=== PATIENT | male | born 1995 | race Two or more races ===

== ENCOUNTER 2019-01-18 08:47 | Emergency (ER) | payer OTHER ==
[~2019-01-18] VITALS: Ht 180.3 cm; Wt 94.3 kg
[2019-01-18 09:22] VITALS: BP 180/64
--- NOTE | 2019-01-18 10:00 | PHYS DOC ---
Past History Past Medical History: No Pertinent History Past Surgical History: No Surgical History Alcohol Use: Occasionally Drug Use: None Adult General Chief Complaint Chief Complaint: LACERATION/AVULSION [facility] Patient is a 23-year-old male who presents with injury just lateral to his right eye that he sustained while at work. Patient was working on a car that was up on the left and he was working on one of his bearings. Bearing came loose and struck him just lateral to the right eye. He had no loss of consciousness. He admits the pain he rates as mild. Injury occurred less than an hour ago.[] Review of Systems Review of Systems Constitutional: Denies fever or chills [] Eyes: Denies change in visual acuity, redness, or eye pain [] Respiratory: Denies cough or shortness of breath [] Cardiovascular: No additional information not addressed in HPI [] Integument: Positive laceration[] Neurologic: Denies headache, focal weakness or sensory changes [] Allergies Allergies Allergies Coded Allergies Type Severity Reaction Last Updated Verified No Known Drug Allergies 01/18/19 No Physical Exam Physical Exam Constitutional: Well developed, well nourished, no acute distress, non-toxic appearance. [] HENT: Normocephalic, with 1.5; laceration noted to the face just lateral to right eye. Laceration is jagged in shape with fairly sharp margins. Laceration extends into subcutaneous tissue. No foreign body detected.. [] Eyes: PERRLA, EOMI, conjunctiva normal, no discharge. [] Cardiovascular:Heart rate regular rhythm, no murmur [] Lungs & Thorax: Bilateral breath sounds clear to auscultation [] Skin: Warm, dry, laceration as noted above. [] Neurologic: Alert and oriented X 3, no focal deficits noted. [] Current Patient Data Vital Signs Vital Signs Date Time Temp Pulse Resp B/P (MAP) Pulse Ox O2 Delivery O2 Flow Rate FiO2 01/18/19 09:22 98.1 58 18 97 Room Air EKG EKG [] Radiology/Procedures Radiology/Procedures [] Course & Med Decision Making Course & Med Decision Making Pertinent Labs and Imaging studies reviewed. (See chart for details) Laceration Repair by me: Anesthesia: 1% lidocaine locally Location: Face, just lateral to right eye Tendon/Joint/Nerves: No injury Foreign body: None detected after copious irrigation and exploration Technique: A total of 6 Simple Interrupted Sutures were placed utilizing 5-0 Ethilon suture material. Complexity: No subcutaneous sutures/mucosal repair/edge excision Post Closure Length: 1.5 cm Patient's bleeding was easily controlled in the department and there is no indication of anemia. No evidence of compartment syndrome, neurologic injury, vascular injury, open joint, tendon laceration, or foreign body. Patient is appropriate for outpatient follow up. 48 hour wound check. Scar minimization instructions given. Dragon Disclaimer Dragon Disclaimer This electronic medical record was generated, in whole or in part, using a voice recognition dictation system. Departure Departure: Impression: Primary Impression: Facial laceration Disposition: HOME, SELF-CARE Condition: STABLE Referrals: PCP,NO (PCP) Patient Instructions: Facial Laceration Additional Instructions: Return for suture removal in 5 days. Problem Qualifiers Primary Impression: Facial laceration Encounter type: initial encounter Qualified Codes: S01.81XA - Laceration without foreign body of other part of head, initial encounter SANTOS MATOS Jr., DO Jan 18, 2019 10:00
[2019-01-18] MEDS ORDERED: DIPHTH,PERTUSS(ACELL),TET TOX 0.5 ML DISP.SYRIN. VAX IM ONE (10:30)
== END 2019-01-18 10:07 | disposition home or self-care (01) ==
LOC: ER 08:47
DX: S01.81XA Laceration without foreign body of other part of head, initial encounter (principal); W20.8XXA Other cause of strike by thrown, projected or falling object, initial encounter; Y93.89 Activity, other specified; Y92.89 Other specified places as the place of occurrence of the external cause; Y99.8 Other external cause status
CPT/HCPCS: 12011; 90471; 90715; 99283

== ENCOUNTER 2019-01-24 16:00 | Emergency (ER) | payer OTHER ==
[~2019-01-24] VITALS: Ht 180.3 cm; Wt 94.3 kg
[2019-01-24 16:16] VITALS: BP 124/71
--- NOTE | 2019-01-24 16:20 | PHYS DOC ---
Past History Past Medical History: No Pertinent History Past Surgical History: No Surgical History Smoking: Non-smoker Alcohol Use: Occasionally Drug Use: None Adult General Chief Complaint Chief Complaint: SUTURE/STAPLE REMOVAL [facility] HPI Patient is a 23-year-old male presents for suture removal. Sutures were placed 6 days ago lateral to his right eye. There has been no purulent drainage. No pain. No change in vision. No fever.[] Review of Systems Review of Systems Constitutional: Denies fever or chills [] Eyes: Denies change in visual acuity, redness, or eye pain [] HENT: Denies nasal congestion or sore throat [] Respiratory: Denies cough or shortness of breath [] Cardiovascular: No additional information not addressed in HPI [] GI: Denies abdominal pain, nausea, vomiting, bloody stools or diarrhea [] : Denies dysuria or hematuria [] Musculoskeletal: Denies back pain or joint pain [] Integument: Denies rash or skin lesions, see history of present illness [] Neurologic: Denies headache, focal weakness or sensory changes [] Endocrine: Denies polyuria or polydipsia [] All other systems were reviewed and found to be within normal limits, except as documented in this note. Allergies Allergies Allergies Coded Allergies Type Severity Reaction Last Updated Verified No Known Drug Allergies 01/18/19 No Physical Exam Physical Exam Constitutional: Well developed, well nourished, no acute distress, non-toxic appearance. [] HENT: Normocephalic, sutured wound lateral to the right eye. No purulent drainage, no erythema, no wound dehiscence, bilateral external ears normal, oropharynx moist, no oral exudates, nose normal. [] Eyes: PERRLA, EOMI, conjunctiva normal, no discharge. [] Neck: Normal range of motion, no tenderness, supple, no stridor. [] Cardiovascular:Heart rate regular rhythm, no murmur [] Lungs & Thorax: Bilateral breath sounds clear to auscultation [] Abdomen: Not examined. [] Skin: Warm, dry, no erythema, no rash. [] Back: No tenderness, no CVA tenderness. [] Extremities: No tenderness, no cyanosis, no clubbing, ROM intact, no edema. [] Neurologic: Alert and oriented X 3, normal motor function, normal sensory function, no focal deficits noted. [] Psychologic: Affect normal, judgement normal, mood normal. [] EKG EKG [] Radiology/Procedures Radiology/Procedures [] Course & Med Decision Making Course & Med Decision Making Pertinent Labs and Imaging studies reviewed. (See chart for details) ED course: Patient arrived, was placed in bed, and tolerated exam well. Sutures were removed without any complications. He was discharged in improved condition with all questions answered. Medical decision making: Encounter for suture removal without any complications. No evidence of an infection.[] Dragon Disclaimer Dragon Disclaimer This electronic medical record was generated, in whole or in part, using a voice recognition dictation system. Departure Departure: Impression: Primary Impression: Visit for suture removal Disposition: HOME, SELF-CARE Condition: IMPROVED Referrals: PCPNAKIA (PCP) Patient Instructions: Suture Removal Additional Instructions: Use sunblock for the next year. Use vitamin E oil to help with wound healing. Follow-up with your regular doctor. Return to the ER if worsening pain, purulent drainage, or any other concerns. AYE STEPHENS DO Jan 24, 2019 16:20
== END 2019-01-24 16:15 | disposition home or self-care (01) ==
LOC: ER 16:00
DX: S01.111D Laceration without foreign body of right eyelid and periocular area, subsequent encounter (principal); X58.XXXD Exposure to other specified factors, subsequent encounter
CPT/HCPCS: 99281

== ENCOUNTER 2020-06-04 14:27 | Emergency (ER) | payer SELFPAY ==
[~2020-06-04] VITALS: Ht 180.3 cm; Wt 118.0 kg
--- NOTE | 2020-06-04 15:10 | RAD ---
Study: XR HAND_LEFT 3 VIEWS Indication: Left thumb laceration. Comparison: None. Findings: No acute fracture at the thumb or elsewhere throughout the hand or wrist. No traumatic malalignment. There is the suggestion of ulnar minus variance but this could be in part technical. No retained radiopaque foreign body. The reported thumb laceration is difficult to characterized by r adiography but may be at the thumb/index webspace at the distal margin of the thenar eminence. Correl ate with direct inspection. Impression: No acute osseous abnormality or retained radiopaque foreign body. Electronically signed by: BONILLA SMITH MD (06/04/2020 3:08 PM) [id number]
[2020-06-04] MEDS ORDERED: LIDOCAINE 2% PF 5 ML VIAL. INJ ONE (15:45)
--- NOTE | 2020-06-04 15:45 | PHYS DOC ---
Past History Past Medical History: No Pertinent History Past Surgical History: No Surgical History Smoking: Non-smoker Alcohol Use: Occasionally Drug Use: None Adult General Chief Complaint Chief Complaint: LACERATION/AVULSION HPI HPI Patient is a 24 year old male patient who presents with laceration to left thumb following a table saw accident. Reports he had been cutting a piece of hard urszula when his finger to cut and the table saw, cutting his left thumb. States fracture repaired proximally from this prior to coming the hospital. Patient states he can still move his digit, states no additional discomfort. Reports he had a tetanus shot approximate 3 years ago when he was here for laceration above his eye. Patient denies any additional complaints Review of Systems Review of Systems Constitutional: Denies fever or chills [] GI: Denies abdominal pain, nausea, vomiting, bloody stools or diarrhea [] Musculoskeletal: Denies back pain or joint pain [] states of discomfort to left thumb. Integument: Denies rash [] states saw injury to his left thumb. Neurologic: Denies headache, focal weakness or sensory changes [] All other systems were reviewed and found to be within normal limits, except as documented in this note. Allergies Allergies Allergies Coded Allergies Type Severity Reaction Last Updated Verified No Known Drug Allergies 01/18/19 No Physical Exam Physical Exam Constitutional: Well developed, well nourished, no acute distress, non-toxic appearance. [] Skin: Warm, dry, no erythema, no rash. [] Approximately 1 cm superficial laceration to medial aspect of left thumb, extension from edge of nail bed superiorly to base of left thumb. No cut into nail plate, however nailbed lifted due to the sawblade, no bleeding under the nail bed noted. Extremities: No tenderness, no cyanosis, no clubbing, ROM intact, no edema. [] full ROM to digits, sensation intact to thumb. Neurologic: Alert and oriented X 3, normal motor function, normal sensory function, no focal deficits noted. [] sensation intact. Psychologic: Affect normal, judgement normal, mood normal. [] Current Patient Data Vital Signs Vital Signs Date Time Temp Pulse Resp B/P (MAP) Pulse Ox O2 Delivery O2 Flow Rate FiO2 06/04/20 14:36 98.6 94 16 144/97 (113) 98 Room Air EKG EKG [] Radiology/Procedures Radiology/Procedures REASON: left thumb lac. PROCEDURE: HAND LEFT 3V Study: XR HAND_LEFT 3 VIEWS Indication: Left thumb laceration. Comparison: None. Findings: No acute fracture at the thumb or elsewhere throughout the hand or wrist. No traumatic malalignment. There is the suggestion of ulnar minus variance but this could be in part technical. No retained radiopaque foreign body. The reported thumb laceration is difficult to characterized by radiography but may be at the thumb/index webspace at the distal margin of the thenar eminence. Correlate with direct inspection. Impression: No acute osseous abnormality or retained radiopaque foreign body. Electronically signed by: BONILLA SMITH MD (06/04/2020 3:08 PM) [id number] DICTATED AND SIGNED BY: BONILLA SMITH MD[] Heart Score Risk Factors: Risk Factors: DM, Current or recent (<one month) smoker, HTN, HLP, family history of CAD, obesity. Risk Scores: Risk Factors: DM, Current or recent (<one month) smoker, HTN, HLP, family history of CAD, obesity. Course & Med Decision Making Course & Med Decision Making Pertinent Labs and Imaging studies reviewed. (See chart for details) []Laceration repaired. Tetanus up to date from prior injury 1.5-3 years ago. Patient without further questions or concerns, will keep it clean and protect it while at work. Dragon Disclaimer Dragon Disclaimer This electronic medical record was generated, in whole or in part, using a voice recognition dictation system. Laceration Repair Lac Repair Indication: [Laceration] Procedure: The patient was placed in the appropriate position and anesthesia using a digital block was performed with 5ml 2% xylocaine without Epi The area was cleaned. The laceration was closed with (5) 5/0 nylon simple interrupted sutures. T The wound was dressed with gauze. Total repaired wound length: 1.5 cm Other Items: small piece of broken nail removed from medial aspect The patient tolerated the procedure well. Complications: None Departure Departure: Impression: Primary Impression: Laceration of thumb without damage to nail Disposition: 01 DC HOME SELF CARE/HOMELESS Condition: GOOD Referrals: PCP,NO (PCP) Patient Instructions: Fingertip Laceration Additional Instructions: You had stitches placed in your thumb today. Keep your thumb clean and dry and protected. Your stitches can come out in 10 days, this can be done here or at your primary care provider office. Take Tylenol for discomfort, as the numbing medication will wear off in the next 1-2 hours. Problem Qualifiers Primary Impression: Laceration of thumb without damage to nail Encounter type: initial encounter Foreign body presence: without foreign body Laterality: left Qualified Codes: S61.012A - Laceration without foreign body of left thumb without damage to nail, initial encounter MADELYN JORDAN APRN Jun 04, 2020 15:45
[2020-06-04] MEDS ORDERED: LIDOCAINE 2% 20 ML VIAL. ONE (16:07)
[2020-06-04 17:48] VITALS: BP 138/83
== END 2020-06-04 17:50 | disposition home or self-care (01) ==
LOC: ER 14:27
DX: S61.112A Laceration without foreign body of left thumb with damage to nail, initial encounter (principal); W27.8XXA Contact with other nonpowered hand tool, initial encounter; Y93.89 Activity, other specified; Y92.89 Other specified places as the place of occurrence of the external cause; Y99.8 Other external cause status
CPT/HCPCS: 11760; 12001; 73130; 99283-25; 99285-25